=== PATIENT | female | born 1970 | race Two or more races ===

== ENCOUNTER 2022-03-10 04:18 | Day surgery (SDC) | payer OTHER ==
[2022-03-09 12:49] VITALS: BMI 48.5
[2022-03-10] MEDS ORDERED: ONDANSETRON 4 MG/2 ML VIAL IVPUSH PRN ×2 (08:26→08:47)
[2022-03-10] MEDS ORDERED: oxyCODONE HCL 5 MG TABLET PO PRN ×2 (08:26→08:47)
[2022-03-10] MEDS ORDERED: LACTATED RINGERS SOLUTION 1,000 ML IV SCH (08:30)
[2022-03-10] MEDS ORDERED: IBUPROFEN 800 MG/8 ML IJ IVPB PRN (08:47)
[2022-03-10] MEDS ORDERED: IBUPROFEN 600 MG TABLET (FP) PO PRN (08:47)
[2022-03-10] MEDS ORDERED: ELECTROLYTE-148 SOLN 1,000 ML IV SCH (09:00)
[2022-03-10] MEDS ORDERED: MIDAZOLAM HCL 2 MG/2 ML SINGLE DOSE VIAL ONE (09:08)
[2022-03-10] MEDS ORDERED: PROPOFOL 20 ML ONE ×2 (09:12→09:22)
[2022-03-10] MEDS ORDERED: DEXAMETHASONE SOD PHOSPHATE 4 MG/1 ML VIAL ONE (09:22)
[2022-03-10] MEDS ORDERED: KETOROLAC TROMETHAMINE 30 MG/1 ML VIAL ONE (09:22)
[2022-03-10] MEDS ORDERED: ONDANSETRON 4 MG/2 ML VIAL ONE (09:22)
[2022-03-10 11:53] VITALS: RESP 20
[2022-03-10 13:21] VITALS: BP 128/66; PULSE 78; TEMP 97.8
== END 2022-03-10 13:15 | disposition home or self-care (01) ==
LOC: JASU-SURG 04:18
PROVIDERS: ATTEND Obstetrics & Gynecology
PROC: 0UDB8ZX Extraction of Endometrium, Via Natural or Artificial Opening Endoscopic, Diagnostic (ICD-10-PCS; 2022-03-10)
PROC: 0UB98ZZ Excision of Uterus, Via Natural or Artificial Opening Endoscopic (ICD-10-PCS; principal; 2022-03-10 09:00)
DX: N95.0 Postmenopausal bleeding (principal); D25.0 Submucous leiomyoma of uterus; E66.01 Morbid (severe) obesity due to excess calories
CPT/HCPCS: 88305-TC; 94760